=== PATIENT | female | born 1935 | race Caucasian/White ===

== ENCOUNTER 2018-05-24 09:45 | Outpatient (CLI) | payer MEDICARE, OTHER ==
[2018-05-24] VITALS (22 sets, daily range): BP systolic 71–144; BP diastolic 29–79
[~2018-05-24 09:45] MED LIST: ALEN70TA48 PO; AMIO200T57 PO; APIX5TAB3 PO; ASPI-611 PO; CALC-792 PO; FENO145T36 PO; METO25TA6 PO; MULT-1085 PO; OMEG1CAP46 PO; OMEP-84 PO; PHE25R PR; PSYL0.525 PO; ZOC40T PO
== END 2018-05-24 23:59 | disposition home or self-care (01) ==
LOC: CARD DIAG 09:45
PROVIDERS: ATTEND Internal Medicine Cardiovascular Disease
DX: R42 Dizziness and giddiness (principal)
CPT/HCPCS: 93660

== ENCOUNTER 2018-08-17 09:13 | Inpatient (IN) | payer MEDICARE, OTHER ==
[~2018-08-17] VITALS: Ht 149.9 cm; Wt 59.0 kg
[~2018-08-17 09:13] MED LIST changes: +AMIO200T40 PO; -AMIO200T57 PO
[2018-08-17 09:48] LABS: BASOPHILS % (AUTO) 0.3 % (0-1); EOSINOPHILS # (AUTO) 0.2 X10'3 (0-0.9); HEMATOCRIT 39.6 % (35.0-45.0); HEMOGLOBIN 13.4 g/dl (12.0-16.0); LYMPHOCYTES # (AUTO) 1.4 X10'3 (1.1-4.8); LYMPHOCYTES % (AUTO) 14.7 % (21-51); MEAN CORPUSCULAR HEMOGLOBIN 31.2 PG (27.0-31.0); MEAN CORPUSCULAR HGB CONC 33.7 % (33.0-36.5); MEAN CORPUSCULAR VOLUME 92.3 FL (78-98); MEAN PLATELET VOLUME 8.1 FL (7.4-10.4); MONOCYTES # (AUTO) 0.8 X10'3 (0-0.9); NEUTROPHILS # (AUTO) 6.8 X10'3 (1.8-7.7); PLATELET COUNT 379 X10'3 (140-440); RED BLOOD COUNT 4.29 X10'6 (4.20-5.60); RED CELL DISTRIBUTION WIDTH 15.6 % (11.5-14.5); WHITE BLOOD COUNT 9.3 X10'3 (4.5-11.0)
[2018-08-17 10:01] LABS: ALANINE AMINOTRANSFERASE 277 U/L (12-78); ALBUMIN 2.4 G/DL (3.4-5.0); ALBUMIN/GLOBULIN RATIO 0.6 (1.1-1.5); ALKALINE PHOSPHATASE 125 IU/L (46-116); ANION GAP 10 (8-16); ASPARTATE AMINO TRANSFERASE 286 U/L (10-37); BILIRUBIN,TOTAL 0.9 MG/DL (0.1-1.0); BLOOD UREA NITROGEN 9 MG/DL (7-18); BUN/CREATININE RATIO 9.4 (6.6-38.0); CALCIUM 8.6 MG/DL (8.5-10.1); CHLORIDE 103 MMOL/L (99-107); CREATININE 0.96 MG/DL (0.40-0.90); GLUCOSE 105 MG/DL (70-104); POTASSIUM 3.6 MMOL/L (3.5-5.1); SODIUM 138 MMOL/L (135-145); TOTAL CARBON DIOXIDE 24.8 MMOL/L (24-32); TOTAL PROTEIN 6.6 G/DL (6.4-8.2); eGFR 55 ML/MIN
[2018-08-17 10:02] LABS: INR 1.2 INR; PARTIAL THROMBOPLASTIN TIME 34 SECONDS (22-32); PROTHROMBIN TIME 12.2 SECONDS (9.0-12.0)
[2018-08-17 10:05] LABS: ETHANOL < 0.010 GM/DL (0.0-0.010); TROPONIN I < 0.04 NG/ML (0.0-0.05)
[2018-08-17 10:07] LABS: ANISOCYTOSIS 1+; PLATELET ESTIMATE NORMAL; TOTAL CELLS COUNTED 100
[2018-08-17 10:09] LABS: TOXIC GRANULATION 1+
[2018-08-17 11:05] LABS: CLARITY,URINE SLIGHTLY CLOUDY (Clear); COLOR,URINE YELLOW (Yellow); GLUCOSE, URINE NEGATIVE (Neg); KETONES,URINE NEGATIVE (Neg); LEUKOCYTE ESTERASE ,URINE NEGATIVE (Neg); NITRITES, URINE POSITIVE (Neg); OCCULT BLOOD,URINE TRACE-INTACT (Neg); PH,URINE 6.5 (4.8-8.0); PROTEIN,URINE NEGATIVE (Neg); UROBILINOGEN,URINE 0.2 E.U/dL (0.2-1.0)
[2018-08-17 11:06] LABS: UA COLLECTION TYPE STRAIGHT CATH
[2018-08-17 11:13] LABS: BACTERIA,URINE 3+ /HPF (Neg); SQUAMOUS EPITHELIAL CELL,UR FEW /LPF (FEW)
[2018-08-17 11:14] LABS: RBC,URINE 0-2 /HPF (0-2); WBC,URINE 0-4 /HPF (0-4)
[2018-08-17 11:18] LABS: URINE AMPHETAMINE SCREEN NEGATIVE (Neg); URINE BARBITUATE SCREEN NEGATIVE (Neg); URINE BENZODIAZEPINES SCREEN NEGATIVE (Neg); URINE CANNABINOID SCREEN NEGATIVE (Neg); URINE COCAINE SCREEN NEGATIVE (Neg); URINE METHADONE SCREEN NEGATIVE (Neg); URINE OPIATE SCREEN NEGATIVE (Neg); URINE PHENCYCLIDINE SCREEN NEGATIVE (Neg)
[2018-08-17] MEDS ORDERED: CefTRIAXone/D5W-Rocephin 1gm 50 ML IV ONE (12:35)
[2018-08-17] MEDS ORDERED: mag hydrox/Alum hydrox/simeth 30ml oral suspension PO PRN (13:05)
[2018-08-17] MEDS ORDERED: acetaminophen 325mg tablet PO PRN (13:05)
[2018-08-17] MEDS ORDERED: morphine 2 MG/ML inj. syringe IV PRN (13:05)
[2018-08-17] MEDS ORDERED: magnesium hydroxide 30ml (MOM) UD suspension PO PRN (13:05)
[2018-08-17] MEDS ORDERED: METO25TA6 PO (15:04)
[2018-08-17] MEDS ORDERED: LISI-604 PO (15:04)
[2018-08-17] MEDS: morphine 2 MG/ML inj. syringe IV PRN (15:17)
[2018-08-17 15:57] VITALS: BP 155/68
[2018-08-17] MEDS: normal saline 1000ml 1,000 ML IV SCH (16:17)
[2018-08-17] MEDS ORDERED: non-formulary drug (Alendronate Sodium* (Fosamax*) 1 TAB) PO SCH (16:25)
[2018-08-17 18:00] VITALS: BP 121/73
[2018-08-17] MEDS: metoprolol tartrate 50mg tablet PO SCH (20:52)
[2018-08-17] MEDS: apixaban 5mg tablet PO SCH (20:52)
[2018-08-17] MEDS: atorvastatin 20mg tablet PO SCH (20:52)
[2018-08-17 22:00] VITALS: BP 139/60
[2018-08-18] MEDS: HYDROcodone/acetaminophen 5mg/325mg tablet PO PRN ×3 (05:25→19:53)
[2018-08-18] MEDS: normal saline 1000ml 1,000 ML IV SCH ×4 (05:26→22:00)
[2018-08-18 06:00] VITALS: BP 133/63
[2018-08-18 06:28] LABS: BASOPHILS # (AUTO) 0.1 X10'3 (0-0.2); BASOPHILS % (AUTO) 0.6 % (0-1); EOSINOPHILS # (AUTO) 0.1 X10'3 (0-0.9); EOSINOPHILS % (AUTO) 1.3 % (0-6); HEMATOCRIT 34.9 % (35.0-45.0); HEMOGLOBIN 11.7 g/dl (12.0-16.0); LYMPHOCYTES # (AUTO) 1.4 X10'3 (1.1-4.8); LYMPHOCYTES % (AUTO) 15.5 % (21-51); MEAN CORPUSCULAR HEMOGLOBIN 31.4 PG (27.0-31.0); MEAN CORPUSCULAR HGB CONC 33.5 % (33.0-36.5); MEAN CORPUSCULAR VOLUME 93.6 FL (78-98); MEAN PLATELET VOLUME 8.4 FL (7.4-10.4); MONOCYTES % (AUTO) 11.1 % (2-12); NEUTROPHILS # (AUTO) 6.6 X10'3 (1.8-7.7); NEUTROPHILS % (AUTO) 71.5 % (42-75); PLATELET COUNT 354 X10'3 (140-440); RED BLOOD COUNT 3.73 X10'6 (4.20-5.60); RED CELL DISTRIBUTION WIDTH 15.6 % (11.5-14.5); WHITE BLOOD COUNT 9.3 X10'3 (4.5-11.0)
[2018-08-18 06:49] LABS: ANION GAP 12 (8-16); BLOOD UREA NITROGEN 9 MG/DL (7-18); CALCIUM 8.1 MG/DL (8.5-10.1); CHLORIDE 105 MMOL/L (99-107); GLUCOSE 82 MG/DL (70-104); POTASSIUM 3.5 MMOL/L (3.5-5.1); SODIUM 139 MMOL/L (135-145); TOTAL CARBON DIOXIDE 21.8 MMOL/L (24-32); eGFR 53 ML/MIN
[2018-08-18] MEDS ORDERED: FISH OIL PO SCH (08:00)
[2018-08-18] MEDS ORDERED: OMEGA PO SCH (08:00)
[2018-08-18] MEDS ORDERED: metoprolol tartrate 25mg tablet PO SCH (08:00)
[2018-08-18] MEDS ORDERED: FATTY ACIDS PO SCH (08:00)
[2018-08-18] MEDS: apixaban 5mg tablet PO SCH ×2 (08:30→19:53)
[2018-08-18] MEDS: calcium carbonate/vitamin D3 tablet PO SCH (08:30)
[2018-08-18] MEDS: multivitamins, therapeutics tablet PO SCH (08:30)
[2018-08-18] MEDS: amiodarone 200mg tablet PO SCH (08:30)
[2018-08-18] MEDS: lisinopril 5mg tablet PO SCH (08:31)
[2018-08-18] MEDS: metoprolol tartrate 50mg tablet PO SCH ×2 (08:31→19:53)
[2018-08-18 10:00] VITALS: BP 116/56
[2018-08-18] MEDS: CefTRIAXone/D5W-Rocephin 1gm 50 ML IV SCH (16:13)
[2018-08-18 18:00] VITALS: BP 117/56
[2018-08-18] MEDS: atorvastatin 20mg tablet PO SCH (19:53)
[2018-08-18 22:00] VITALS: BP 134/62
[2018-08-19] MEDS: HYDROcodone/acetaminophen 5mg/325mg tablet PO PRN (05:10)
[2018-08-19 06:00] VITALS: BP 110/63
[2018-08-19 06:49] LABS: BASOPHILS % (AUTO) 0.3 % (0-1); EOSINOPHILS # (AUTO) 0.2 X10'3 (0-0.9); HEMATOCRIT 35.5 % (35.0-45.0); LYMPHOCYTES # (AUTO) 1.1 X10'3 (1.1-4.8); LYMPHOCYTES % (AUTO) 14.5 % (21-51); MEAN CORPUSCULAR HEMOGLOBIN 31.2 PG (27.0-31.0); MEAN CORPUSCULAR HGB CONC 33.8 % (33.0-36.5); MEAN CORPUSCULAR VOLUME 92.3 FL (78-98); MONOCYTES # (AUTO) 0.8 X10'3 (0-0.9); MONOCYTES % (AUTO) 10.2 % (2-12); NEUTROPHILS # (AUTO) 5.6 X10'3 (1.8-7.7); PLATELET COUNT 349 X10'3 (140-440); RED BLOOD COUNT 3.84 X10'6 (4.20-5.60); RED CELL DISTRIBUTION WIDTH 15.7 % (11.5-14.5); WHITE BLOOD COUNT 7.8 X10'3 (4.5-11.0)
[2018-08-19 07:05] LABS: ALANINE AMINOTRANSFERASE 231 U/L (12-78); ALBUMIN 1.7 G/DL (3.4-5.0); ALBUMIN/GLOBULIN RATIO 0.5 (1.1-1.5); ALKALINE PHOSPHATASE 112 IU/L (46-116); ANION GAP 10 (8-16); ASPARTATE AMINO TRANSFERASE 254 U/L (10-37); BILIRUBIN,TOTAL 0.6 MG/DL (0.1-1.0); BLOOD UREA NITROGEN 9 MG/DL (7-18); BUN/CREATININE RATIO 11.3 (6.6-38.0); CALCIUM 7.5 MG/DL (8.5-10.1); CHLORIDE 107 MMOL/L (99-107); GLUCOSE 117 MG/DL (70-104); POTASSIUM 3.3 MMOL/L (3.5-5.1); SODIUM 140 MMOL/L (135-145); TOTAL CARBON DIOXIDE 22.8 MMOL/L (24-32); TOTAL PROTEIN 5.1 G/DL (6.4-8.2); eGFR 68 ML/MIN
[2018-08-19] MEDS ORDERED: potassium Cl 20 mEq SR tablet PO PRN (07:10)
[2018-08-19] MEDS ORDERED: potassium Cl 40MEQ/NS 500ml 500 ML IV PRN ×2 (07:10)
[2018-08-19] MEDS: apixaban 5mg tablet PO SCH ×3 (08:00→20:59)
[2018-08-19] MEDS: amiodarone 200mg tablet PO SCH ×2 (08:00→08:22)
[2018-08-19] MEDS: multivitamins, therapeutics tablet PO SCH ×2 (08:00→08:22)
[2018-08-19] MEDS: calcium carbonate/vitamin D3 tablet PO SCH ×2 (08:00→08:22)
[2018-08-19] MEDS: metoprolol tartrate 50mg tablet PO SCH ×2 (08:00→20:59)
[2018-08-19] MEDS: lisinopril 5mg tablet PO SCH (08:00)
[2018-08-19] MEDS: CefTRIAXone/D5W-Rocephin 1gm 50 ML IV SCH (08:22)
[2018-08-19] MEDS: normal saline 1000ml 1,000 ML IV SCH (08:46)
[2018-08-19] MEDS: ondansetron/PF 4mg/2ml inj IV PRN (08:51)
[2018-08-19 10:00] VITALS: BP 150/65
[2018-08-19] MEDS: morphine 2 MG/ML inj. syringe IV PRN (11:39)
[2018-08-19 18:00] VITALS: BP 137/60
[2018-08-19] MEDS: atorvastatin 20mg tablet PO SCH (20:59)
[2018-08-19 22:00] VITALS: BP 139/55
[2018-08-20] MEDS: normal saline 1000ml 1,000 ML IV SCH ×2 (01:04→08:53)
[2018-08-20] MEDS: ondansetron/PF 4mg/2ml inj IV PRN (05:58)
[2018-08-20] MEDS: HYDROcodone/acetaminophen 5mg/325mg tablet PO PRN (05:58)
[2018-08-20 06:00] VITALS: BP 145/67
[2018-08-20 06:25] LABS: BASOPHILS % (AUTO) 0.4 % (0-1); EOSINOPHILS # (AUTO) 0.2 X10'3 (0-0.9); HEMATOCRIT 35.2 % (35.0-45.0); LYMPHOCYTES # (AUTO) 1.3 X10'3 (1.1-4.8); LYMPHOCYTES % (AUTO) 15.8 % (21-51); MEAN CORPUSCULAR HEMOGLOBIN 31.7 PG (27.0-31.0); MEAN CORPUSCULAR HGB CONC 34.2 % (33.0-36.5); MEAN CORPUSCULAR VOLUME 92.7 FL (78-98); MEAN PLATELET VOLUME 8.4 FL (7.4-10.4); MONOCYTES # (AUTO) 0.9 X10'3 (0-0.9); NEUTROPHILS # (AUTO) 5.6 X10'3 (1.8-7.7); NEUTROPHILS % (AUTO) 70.8 % (42-75); PLATELET COUNT 367 X10'3 (140-440); RED BLOOD COUNT 3.79 X10'6 (4.20-5.60); RED CELL DISTRIBUTION WIDTH 16.2 % (11.5-14.5); WHITE BLOOD COUNT 7.9 X10'3 (4.5-11.0)
[2018-08-20 06:56] LABS: ALBUMIN 1.7 G/DL (3.4-5.0); ANION GAP 10 (8-16); BLOOD UREA NITROGEN 8 MG/DL (7-18); BUN/CREATININE RATIO 8.2 (6.6-38.0); CALCIUM 7.7 MG/DL (8.5-10.1); CHLORIDE 109 MMOL/L (99-107); CREATININE 0.98 MG/DL (0.40-0.90); GLUCOSE 100 MG/DL (70-104); POTASSIUM 3.7 MMOL/L (3.5-5.1); SODIUM 141 MMOL/L (135-145); TOTAL CARBON DIOXIDE 21.9 MMOL/L (24-32); eGFR 54 ML/MIN
[2018-08-20] MEDS: CefTRIAXone/D5W-Rocephin 1gm 50 ML IV SCH (07:33)
[2018-08-20] MEDS: metoprolol tartrate 50mg tablet PO SCH (07:34)
[2018-08-20] MEDS: lisinopril 5mg tablet PO SCH (07:34)
[2018-08-20] MEDS: calcium carbonate/vitamin D3 tablet PO SCH (07:34)
[2018-08-20] MEDS: multivitamins, therapeutics tablet PO SCH (07:34)
[2018-08-20] MEDS: amiodarone 200mg tablet PO SCH (07:34)
[2018-08-20] MEDS: apixaban 5mg tablet PO SCH (07:34)
[2018-08-20 10:00] VITALS: BP 113/60
[2018-08-20] MEDS: morphine 2 MG/ML inj. syringe IV PRN (12:44)
[2018-08-20] MEDS ORDERED: lactobacillus rhamnosus 10,000 MMU CELLS/CAPSULE PO SCH (20:00)
== END 2018-08-20 14:50 | DRG 551 ==
LOC: ER 09:14 → ED HOLD 13:04 → EDBEDREQ 14:49 → ORTHO 4S 15:55
PROVIDERS: ADMIT Family Medicine; ATTEND Family Medicine
DX: S32.010A Wedge compression fracture of first lumbar vertebra, initial encounter for closed fracture (principal); E43 Unspecified severe protein-calorie malnutrition; N39.0 Urinary tract infection, site not specified; E78.5 Hyperlipidemia, unspecified; F03.90 Unspecified dementia, unspecified severity, without behavioral disturbance, psychotic disturbance, mood disturbance, and anxiety; I10 Essential (primary) hypertension; I25.10 Atherosclerotic heart disease of native coronary artery without angina pectoris; I48.2 Chronic atrial fibrillation; R29.6 Repeated falls; B96.20 Unspecified Escherichia coli [E. coli] as the cause of diseases classified elsewhere; T46.2X5A Adverse effect of other antidysrhythmic drugs, initial encounter; W18.39XA Other fall on same level, initial encounter; R29.890 Loss of height; R74.0 Nonspecific elevation of levels of transaminase and lactic acid dehydrogenase [LDH]; R79.89 Other specified abnormal findings of blood chemistry; I25.2 Old myocardial infarction; Z90.710 Acquired absence of both cervix and uterus; Z79.899 Other long term (current) drug therapy; Y93.89 Activity, other specified; Y92.098 Other place in other non-institutional residence as the place of occurrence of the external cause; Y99.8 Other external cause status; Z68.26 Body mass index [BMI] 26.0-26.9, adult
CPT/HCPCS: 36415; 70450; 71045; 72125; 72131; 72170; 80048; 80053; 80305; 80320; 81001; 84484; 85007; 85025; 85610; 85730; 87070; 87077; 87088; 87186; 92616; 93005; 96365; 97110; 97162; 97530; 97760; 99285; J0696; J2270; J2405; J3480; J7030

== ENCOUNTER 2018-09-15 09:58 | Inpatient (IN) | payer MEDICARE, OTHER ==
[~2018-09-15] VITALS: Ht 152.4 cm; Wt 60.0 kg
[~2018-09-15 09:58] MED LIST changes: -ASPI-611 PO; -FENO145T36 PO; +LISI-604 PO; -OMEP-84 PO; -PHE25R PR
[2018-09-15 11:07] LABS: BASOPHILS % (AUTO) 0.4 % (0-1); EOSINOPHILS # (AUTO) 0.3 X10'3 (0-0.9); EOSINOPHILS % (AUTO) 3.4 % (0-6); HEMATOCRIT 38.9 % (35.0-45.0); HEMOGLOBIN 12.8 g/dl (12.0-16.0); LYMPHOCYTES # (AUTO) 1.4 X10'3 (1.1-4.8); LYMPHOCYTES % (AUTO) 16.8 % (21-51); MEAN CORPUSCULAR HEMOGLOBIN 29.9 PG (27.0-31.0); MEAN CORPUSCULAR HGB CONC 32.9 % (33.0-36.5); MEAN CORPUSCULAR VOLUME 90.8 FL (78-98); MONOCYTES # (AUTO) 0.8 X10'3 (0-0.9); MONOCYTES % (AUTO) 9.5 % (2-12); NEUTROPHILS # (AUTO) 5.9 X10'3 (1.8-7.7); NEUTROPHILS % (AUTO) 69.9 % (42-75); PLATELET COUNT 470 X10'3 (140-440); RED BLOOD COUNT 4.29 X10'6 (4.20-5.60); RED CELL DISTRIBUTION WIDTH 17.5 % (11.5-14.5); WHITE BLOOD COUNT 8.5 X10'3 (4.5-11.0)
[2018-09-15 11:17] LABS: CLARITY,URINE CLEAR (Clear); COLOR,URINE YELLOW (Yellow); GLUCOSE, URINE NEGATIVE (Neg); KETONES,URINE 15 mg/dl (Neg); LEUKOCYTE ESTERASE ,URINE NEGATIVE (Neg); NITRITES, URINE NEGATIVE (Neg); OCCULT BLOOD,URINE NEGATIVE (Neg); PH,URINE 5.5 (4.8-8.0); PROTEIN,URINE NEGATIVE (Neg)
[2018-09-15 11:19] LABS: ALANINE AMINOTRANSFERASE 222 U/L (12-78); ALBUMIN 2.1 G/DL (3.4-5.0); ALBUMIN/GLOBULIN RATIO 0.5 (1.1-1.5); ALKALINE PHOSPHATASE 239 IU/L (46-116); ANION GAP 12 (8-16); ASPARTATE AMINO TRANSFERASE 297 U/L (10-37); BILIRUBIN,TOTAL 1.3 MG/DL (0.1-1.0); BLOOD UREA NITROGEN 18 MG/DL (7-18); CALCIUM 8.4 MG/DL (8.5-10.1); CHLORIDE 102 MMOL/L (99-107); GLUCOSE 85 MG/DL (70-104); INR 1.1 INR; PARTIAL THROMBOPLASTIN TIME 31 SECONDS (22-32); PROTHROMBIN TIME 11.5 SECONDS (9.0-12.0); SODIUM 138 MMOL/L (135-145); TOTAL CARBON DIOXIDE 24.5 MMOL/L (24-32); TOTAL PROTEIN 6.3 G/DL (6.4-8.2); eGFR 53 ML/MIN
[2018-09-15 11:19] LABS: UA COLLECTION TYPE STRAIGHT CATH
[2018-09-15 11:28] LABS: MAGNESIUM 1.7 MG/DL (1.5-2.4)
[2018-09-15] MEDS ORDERED: aspirin 81mg tab.chew PO ONE (11:45)
[2018-09-15] MEDS ORDERED: magnesium hydroxide 30ml (MOM) UD suspension PO PRN (12:25)
[2018-09-15] MEDS ORDERED: ondansetron/PF 4mg/2ml inj IV PRN (12:25)
[2018-09-15] MEDS ORDERED: potassium Cl 40MEQ/NS 500ml 500 ML IV PRN ×2 (12:25)
[2018-09-15] MEDS ORDERED: mag hydrox/Alum hydrox/simeth 30ml oral suspension PO PRN (12:25)
[2018-09-15] MEDS ORDERED: magnesium 4gm in 100ml NS 100 ML IV PRN (12:25)
[2018-09-15] MEDS ORDERED: acetaminophen 325mg tablet PO PRN (12:25)
[2018-09-15] MEDS ORDERED: morphine 2 MG/ML inj. syringe IV PRN (12:25)
[2018-09-15] MEDS ORDERED: potassium Cl 20 mEq SR tablet PO PRN ×2 (12:25)
[2018-09-15] MEDS ORDERED: magnesium 1gm/100ml D5W IVPB 100 ML IV PRN (12:25)
[2018-09-15] MEDS ORDERED: magnesium Cl slow-release 64mg tablet PO PRN (12:25)
[2018-09-15 16:15] VITALS: BP 150/69
[2018-09-15] MEDS ORDERED: OMEP20CA10 PO (16:55)
[2018-09-15] MEDS ORDERED: METO50TA16 PO (16:55)
[2018-09-15 18:00] VITALS: BP 133/68
[2018-09-15 22:00] VITALS: BP 133/58
[2018-09-16 05:00] VITALS: BP 142/59
[2018-09-16] MEDS: pantoprazole 40mg Tablet.DR PO SCH (07:30)
[2018-09-16] MEDS: megestrol acetate 20mg tablet PO SCH (08:00)
[2018-09-16] MEDS: K and/or MAG REPLACEMENT MC SCH (08:00)
[2018-09-16] MEDS: furosemide 20 MG/2 ML vial IV SCH (08:40)
[2018-09-16] MEDS ORDERED: metoclopramide 5 mg/ml inj IV PRN (09:10)
[2018-09-16] MEDS: normal saline 1000ml 1,000 ML IV SCH ×2 (09:47→22:02)
[2018-09-16 10:00] VITALS: BP 144/59
[2018-09-16 18:00] VITALS: BP 124/64
[2018-09-16 21:00] VITALS: BP 141/66
[2018-09-17 04:17] LABS: D-DIMER 1.86 MG/L FEU (0-0.50)
[2018-09-17 04:25] LABS: ALANINE AMINOTRANSFERASE 190 U/L (12-78); ALBUMIN 1.8 G/DL (3.4-5.0); ALBUMIN/GLOBULIN RATIO 0.5 (1.1-1.5); ALKALINE PHOSPHATASE 190 IU/L (46-116); ANION GAP 13 (8-16); ASPARTATE AMINO TRANSFERASE 231 U/L (10-37); BILIRUBIN,TOTAL 1.4 MG/DL (0.1-1.0); BLOOD UREA NITROGEN 13 MG/DL (7-18); CALCIUM 8.2 MG/DL (8.5-10.1); CHLORIDE 104 MMOL/L (99-107); CREATININE 0.81 MG/DL (0.40-0.90); GLUCOSE 67 MG/DL (70-104); POTASSIUM 3.4 MMOL/L (3.5-5.1); SODIUM 140 MMOL/L (135-145); TOTAL PROTEIN 5.7 G/DL (6.4-8.2); TROPONIN I 0.06 NG/ML (0.0-0.05); eGFR 67 ML/MIN
[2018-09-17] MEDS: dextrose 5%-1/2 normal saline 1,000 ML IV SCH (05:32)
[2018-09-17 06:00] VITALS: BP 109/58
[2018-09-17] MEDS: pantoprazole 40mg Tablet.DR PO SCH (07:30)
[2018-09-17] MEDS: furosemide 20 MG/2 ML vial IV SCH (09:44)
[2018-09-17 10:00] VITALS: BP 103/65
[2018-09-17] MEDS: megestrol acetate 20mg tablet PO SCH (10:00)
[2018-09-17] MEDS: K and/or MAG REPLACEMENT MC SCH (11:30)
[2018-09-17] MEDS: normal saline 1000ml 1,000 ML IV SCH (11:50)
[2018-09-17 18:00] VITALS: BP 123/60
[2018-09-17] MEDS: amiodarone 200mg tablet PO SCH (19:51)
[2018-09-17] MEDS: apixaban 5mg tablet PO SCH (19:51)
[2018-09-17] MEDS: metoprolol tartrate 50mg tablet PO SCH (20:14)
[2018-09-17] MEDS: atorvastatin 20mg tablet PO SCH (20:14)
[2018-09-17] MEDS ORDERED: non-formulary drug (Simvastatin* (Zocor*) 1 TAB) PO SCH (21:00)
[2018-09-17 22:00] VITALS: BP 120/63
[2018-09-18] MEDS: normal saline 1000ml 1,000 ML IV SCH (01:10)
[2018-09-18] MEDS: dextrose 5%-1/2 normal saline 1,000 ML IV SCH (03:24)
[2018-09-18 05:00] VITALS: BP 124/66
[2018-09-18] MEDS: pantoprazole 40mg Tablet.DR PO SCH (07:46)
[2018-09-18] MEDS: megestrol acetate 20mg tablet PO SCH (07:46)
[2018-09-18] MEDS: multivitamins, therapeutics tablet PO SCH (07:46)
[2018-09-18] MEDS: lisinopril 10 MG tablet PO SCH (07:46)
[2018-09-18] MEDS: metoprolol tartrate 25mg tablet PO SCH (07:46)
[2018-09-18] MEDS: apixaban 5mg tablet PO SCH ×2 (07:46→20:15)
[2018-09-18] MEDS: calcium carbonate/vitamin D3 tablet PO SCH (07:50)
[2018-09-18] MEDS: amiodarone 200mg tablet PO SCH ×2 (07:51→20:15)
[2018-09-18] MEDS ORDERED: CALCIUM CARB PO SCH (08:00)
[2018-09-18] MEDS ORDERED: non-formulary drug (Multivitamin (Multi Vitamin Daily) 1 TAB) PO SCH (08:00)
[2018-09-18] MEDS ORDERED: MINERALS PO SCH (08:00)
[2018-09-18] MEDS: K and/or MAG REPLACEMENT MC SCH (08:00)
[2018-09-18] MEDS ORDERED: VIT D3 PO SCH (08:00)
[2018-09-18] MEDS: furosemide 20 MG/2 ML vial IV SCH (08:00)
[2018-09-18] MEDS ORDERED: non-formulary drug (Omeprazole 1 CAP) PO SCH (08:00)
[2018-09-18 09:00] VITALS: BP 88/49
[2018-09-18 09:26] LABS: ALANINE AMINOTRANSFERASE 158 U/L (12-78); ALBUMIN 1.7 G/DL (3.4-5.0); ALBUMIN/GLOBULIN RATIO 0.5 (1.1-1.5); ALKALINE PHOSPHATASE 176 IU/L (46-116); ANION GAP 6 (8-16); ASPARTATE AMINO TRANSFERASE 175 U/L (10-37); BILIRUBIN,TOTAL 1.2 MG/DL (0.1-1.0); BLOOD UREA NITROGEN 10 MG/DL (7-18); CHLORIDE 105 MMOL/L (99-107); CREATININE 0.83 MG/DL (0.40-0.90); GLUCOSE 147 MG/DL (70-104); POTASSIUM 3.6 MMOL/L (3.5-5.1); SODIUM 137 MMOL/L (135-145); TOTAL CARBON DIOXIDE 25.9 MMOL/L (24-32); TOTAL PROTEIN 5.2 G/DL (6.4-8.2); eGFR 65 ML/MIN
[2018-09-18 19:32] VITALS: BP 115/65
[2018-09-18] MEDS: atorvastatin 20mg tablet PO SCH (20:15)
[2018-09-18] MEDS: metoprolol tartrate 50mg tablet PO SCH (20:18)
[2018-09-18 20:30] VITALS: BP 96/53
[2018-09-18 22:00] VITALS: BP 103/47
[2018-09-19 06:34] LABS: ALANINE AMINOTRANSFERASE 138 U/L (12-78); ALBUMIN 1.5 G/DL (3.4-5.0); ALBUMIN/GLOBULIN RATIO 0.5 (1.1-1.5); ALKALINE PHOSPHATASE 168 IU/L (46-116); ANION GAP 6 (8-16); ASPARTATE AMINO TRANSFERASE 153 U/L (10-37); BLOOD UREA NITROGEN 10 MG/DL (7-18); CALCIUM 7.6 MG/DL (8.5-10.1); CHLORIDE 106 MMOL/L (99-107); CREATININE 0.83 MG/DL (0.40-0.90); GLUCOSE 75 MG/DL (70-104); POTASSIUM 3.7 MMOL/L (3.5-5.1); SODIUM 137 MMOL/L (135-145); TOTAL CARBON DIOXIDE 25.4 MMOL/L (24-32); TOTAL PROTEIN 4.7 G/DL (6.4-8.2); eGFR 65 ML/MIN
[2018-09-19 07:51] VITALS: BP 136/67
[2018-09-19] MEDS: K and/or MAG REPLACEMENT MC SCH (08:00)
[2018-09-19] MEDS: furosemide 20 MG/2 ML vial IV SCH (08:00)
[2018-09-19] MEDS: multivitamins, therapeutics tablet PO SCH (08:01)
[2018-09-19] MEDS: pantoprazole 40mg Tablet.DR PO SCH (08:01)
[2018-09-19] MEDS: amiodarone 200mg tablet PO SCH (08:02)
[2018-09-19] MEDS: lisinopril 10 MG tablet PO SCH (08:02)
[2018-09-19] MEDS: apixaban 5mg tablet PO SCH (08:02)
[2018-09-19] MEDS: metoprolol tartrate 25mg tablet PO SCH (08:02)
[2018-09-19] MEDS: calcium carbonate/vitamin D3 tablet PO SCH (08:02)
[2018-09-19] MEDS: megestrol acetate 20mg tablet PO SCH (08:34)
[2018-09-19 10:00] VITALS: BP 127/60
== END 2018-09-19 15:15 | DRG 70 ==
LOC: ER 09:59 → ED HOLD 12:23 → ORTHO 4S 15:15 → UNDODISIN 15:20
PROVIDERS: ADMIT Internal Medicine; ATTEND Internal Medicine
PROC: B3201ZZ Computerized Tomography (CT Scan) of Thoracic Aorta using Low Osmolar Contrast (ICD-10-PCS; principal; 2018-09-17)
DX: G93.40 Encephalopathy, unspecified (principal); E43 Unspecified severe protein-calorie malnutrition; R79.89 Other specified abnormal findings of blood chemistry; I48.0 Paroxysmal atrial fibrillation; R11.2 Nausea with vomiting, unspecified; T46.2X5A Adverse effect of other antidysrhythmic drugs, initial encounter; R74.0 Nonspecific elevation of levels of transaminase and lactic acid dehydrogenase [LDH]; F03.90 Unspecified dementia, unspecified severity, without behavioral disturbance, psychotic disturbance, mood disturbance, and anxiety; Z66 Do not resuscitate; I10 Essential (primary) hypertension; I25.10 Atherosclerotic heart disease of native coronary artery without angina pectoris; I25.2 Old myocardial infarction; Z90.710 Acquired absence of both cervix and uterus; Z95.0 Presence of cardiac pacemaker; Z79.899 Other long term (current) drug therapy; Z79.01 Long term (current) use of anticoagulants; Z87.440 Personal history of urinary (tract) infections; Z68.25 Body mass index [BMI] 25.0-25.9, adult; Y92.89 Other specified places as the place of occurrence of the external cause
CPT/HCPCS: 36415; 71275; 76700; 80053; 81003; 82533; 82948; 83735; 83880; 84100; 84145; 84443; 84484; 85025; 85379; 85610; 85730; 87070; 93005; 93306; 97162; 97530; 99285; J1940; J2405; J2765; J3480; J7030